=== PATIENT | male | born 1985 | race American Indian/Alaskan Native ===

== ENCOUNTER 2017-08-21 22:19 | Emergency (ER) | payer SELFPAY ==
[2017-08-21 22:26] VITALS: BP 127/78
--- NOTE | 2017-08-22 01:50 | Emergency Department Report ---
ED Laceration HPI - HPI Chief Complaint: Wound/Laceration Stated Complaint: LAC TO HEAD BLEEDING Time Seen by Provider: 08/22/17 01:43 Occurred When: Today Severity: moderate Tetanus Status: Unknown Laceration Symptoms: Yes Pain, No Foreign Body Sensation, No Numbness, No Weakness Other History: This is a 32 y.o. male that presents with a laceration to the back of head on the right side. He hit head on the bedrail around 1730 today. He is having a headache on bilateral frontal area. He is also having right shoulder pain for 1 month. Reports pain in shoulder feel like a clamp is tight on shoulder. Denies LOC, visual changes, numbness/tingling, swelling, nausea/ vomiting, and active bleeding. ED Review of Systems ROS: Stated complaint: LAC TO HEAD BLEEDING Other details as noted in HPI Constitutional: denies: chills, fever Respiratory: denies: cough, shortness of breath, wheezing Cardiovascular: denies: chest pain, palpitations Gastrointestinal: denies: abdominal pain, nausea, vomiting, diarrhea Musculoskeletal: arthralgia (right shoulder) Skin: other (laceration to the back of head on right side). denies: rash, lesions Neurological: headache. denies: weakness, numbness, paresthesias ED Past Medical Hx - Past Medical History Previous Medical History?: Yes - Surgical History Past Surgical History?: No - Social History Smoking Status: Current Every Day Smoker Substance Use Type: None - Medications Home Medications: Home Medications Medication Instructions Recorded Confirmed Last Taken Type Diclofenac Sodium 50 mg PO Q6H PRN #20 tablet. 08/22/17 Unknown Rx Laceration Physical Exam - Exam General: Vital signs noted. No distress. Alert and acting appropriately. Wound Length (cm): 2 Laceration Location: Head (2 cm laceration, superficial to epidermis, no tendon or vessel exposed, no discharge) Laceration Exam: Yes Normal Distal CMS, No Foreign Body, No Exposed Tendon, Vessel, or Nerve, No Tendon Injury ED Course Vital Signs 08/21/17 08/21/17 22:20 22:29 Temperature 98.0 F 98 F Pulse Rate 82 82 Respiratory 18 18 Rate Blood Pressure 127/78 127/78 O2 Sat by Pulse 98 98 Oximetry - Laceration /Wound Repair Right Posterior Occipital Wound Location: head (posterior right side) Wound Length (cm): 2 Wound's Depth, Shape: superficial, linear Wound Explored: no foreign body removed Irrigated w/ Saline (ccs): 10 Betadine Prep?: Yes Volume Anesthetic (ccs): 1 (let topical) Number of Sutures: 2 (fiorella) Layer Closure?: No ED Medical Decision Making - Radiology Data Radiology results: report reviewed Xray of right shoulder IMPRESSION: Within normal limits. - Medical Decision Making This is a 32 y.o. male presents with laceration to posterior head on right side from hitting head on bed rail today and right shoulder pain. The shoulder pain has been there for 1 month and affecting ROM. Patient examined by me. X-ray of right shoulder obtained and normal. Patient is non-toxic appearing and stable. Physical examination is susceptible of laceration to scalp and muscle strain of right shoulder. Given boosterix in ER. Placed 2 fiorella to laceration and instructed to return to ER or f/u with [facility] to have fiorella removed in 7 days. He can follow up with [facility] for shoulder pain. Discharged home for outpatient treatment. Discussed ER care plan with patient. Patient agreed with plan. Start diclofenac for pain. Critical care attestation.: If time is entered above; I have spent that time in minutes in the direct care of this critically ill patient, excluding procedure time. ED Disposition Clinical Impression: Laceration of scalp Qualifiers: Encounter type: initial encounter Qualified Code(s): S01.01XA - Laceration without foreign body of scalp, initial encounter Right shoulder pain Qualifiers: Chronicity: acute Qualified Code(s): M25.511 - Pain in right shoulder Muscle strain of right shoulder region Qualifiers: Encounter type: initial encounter Qualified Code(s): S46.911A - Strain of unspecified muscle, fascia and tendon at shoulder and upper arm level, right arm , initial encounter Disposition: DC-01 TO HOME OR SELFCARE Is pt being admited?: No Does the pt Need Aspirin: No Condition: Stable Instructions: Laceration (ED), Muscle Strain (ED), Staple Care (ED) Additional Instructions: Take diclofenac pain medication as need for pain. Wash head with soap and water in 24-48 hours. Follow up with [facility] in 24-72 hours. Have fiorella removed in 7 days at [facility] or return to ER. Return to ER if red, swollen, foul discharge, or fever. Prescriptions: Diclofenac Sodium 50 mg PO Q6H PRN #20 tablet.dr MCCORMICK Reason: Pain Referrals: [facility] [Outside] - 3-5 Days [facility] [Outside] - 3-5 Days [facility] [Outside] - 3-5 Days Time of Disposition: 03:06 Print Language: MALTESE Upper Extremity Exam - Exam General: Vital signs noted. No distress. Alert and acting appropriately. Head and Torso: No HEENT Abnormality, No Neck Tenderness, No Chest/Lungs Abnormality, No Abdominal Tenderness, No Back Tenderness Shoulder Exam: Yes Shoulder Tenderness, Yes AC Joint Tenderness, No Clavicle Tenderness, No Normal Range of Motion in Shoulder (limited to pain, ROM 60 degrees active and passive), No Shoulder Deformity Arm Exam: No Arm/Humerus Tenderness, No Arm Deformity Elbow: Yes Normal Range of Motion in Elbow, No Elbow Tenderness, No Elbow Deformity Forearm: Yes Pain with Pronation, Yes Pain with Supination, No Forearm Tenderness, No Forearm Deformity Wrist: Yes Normal ROM in Wrist, No Wrist Tenderness, No Wrist Deformity, No Snuffbox Tenderness, No Pain with Axial Thumb Compression Hand: Yes Normal ROM in Digit(s), No Hand Tenderness, No Hand Deformity, No Digit Tenderness, No Digit(s) Deformity, No Tendon Dysfunction CMS Exam: Yes Normal Capillary Refill, No Broken Skin, No Normal Distal Pulses, No Normal Distal Sensation
--- NOTE | 2017-08-22 02:06 | XRay Report ---
FINAL REPORT EXAM: XR SHOULDER 2+V RT HISTORY: right shoulder pain, decreased ROM TECHNIQUE: Three views of the right shoulder were obtained. FINDINGS: There is no evidence of fracture or soft tissue injury. The AC joint and glenohumeral joint appear intact. IMPRESSION: Within normal limits.
[2017-08-22] MEDS ORDERED: LET TOPICAL TP ONE (02:10)
[2017-08-22] MEDS ORDERED: BOOSTRIX IM ONE (02:47)
[2017-08-22] MEDS ORDERED: NORCO 5/325 ONE (03:18)
[2017-08-22] MEDS ORDERED: NORCO 5/325 PO ONE (03:22)
== END 2017-08-22 03:30 | disposition home or self-care (01) ==
LOC: ED 22:19
DX: R51 Headache (principal); Z53.21 Procedure and treatment not carried out due to patient leaving prior to being seen by health care provider
CPT/HCPCS: 90715

== ENCOUNTER 2017-09-02 10:03 | Emergency (ER) | payer SELFPAY ==
[2017-09-02 11:00] VITALS: BP 107/76
--- NOTE | 2017-09-02 14:12 | Emergency Department Report ---
Suture/Staple Removal - [facility] Chief Complaint: Laceration/Recheck/Suture Stated Complaint: STAPLE REMOVAL Time Seen by Provider: 09/02/17 13:57 When Sutures or Fiorella Placed: 8-10 Days Ago Wound Location: right occipital lobe region ED Review of Systems ROS: Stated complaint: STAPLE REMOVAL Other details as noted in HPI Constitutional: denies: chills, fever Eyes: denies: eye pain, eye discharge, vision change ENT: denies: ear pain, throat pain Respiratory: denies: cough, shortness of breath, wheezing Cardiovascular: denies: chest pain, palpitations Endocrine: no symptoms reported Gastrointestinal: denies: abdominal pain, nausea, diarrhea Genitourinary: denies: urgency, dysuria Musculoskeletal: denies: back pain, joint swelling, arthralgia Skin: denies: rash, lesions Neurological: denies: headache, weakness, paresthesias Psychiatric: denies: anxiety, depression Hematological/Lymphatic: denies: easy bleeding, easy bruising ED Past Medical Hx - Past Medical History Previous Medical History?: Yes Additional medical history: head lac with fiorella - Surgical History Past Surgical History?: No - Social History Smoking Status: Current Every Day Smoker Substance Use Type: Alcohol, Prescribed - Medications Home Medications: Home Medications Medication Instructions Recorded Confirmed Last Taken Type Diclofenac Sodium 50 mg PO Q6H PRN #20 tablet. 08/22/17 Unknown Rx Butalb/Acetamin/Caff 50-325-40 1 tab PO Q6HR PRN #30 tab 09/02/17 Unknown Rx [Fioricet] Suture Removal Exam - Exam General: Vital signs noted. No distress. Alert and acting appropriately. GENERAL: The patient is a well-developed, well-nourished in no apparent distress. Patient is alert and acting appropriately for age. Alert and oriented 3, no apparent distress, normal gait, atraumatic. HEENT: Head is normocephalic and atraumatic. PERRL, Extraocular muscles are intact. Pupils are equal, round, and reactive to light and accommodation. Nares appeared normal. Mouth is well hydrated and without lesions. Mucous membranes are moist. Posterior pharynx clear of any exudate or lesions. Mouth is well hydrated and without lesions. Tonsils not erythematous or swollen. Uvula midline. Tongue elevated. Mucous members are moist. Posterior pharynx clear, no exudate or lesions. Patent airways. NECK: Supple. No carotid bruits. No lymphadenopathy or thyromegaly.nontender. No meningitic signs are noted. LUNGS: Clear to auscultation. Non labor breathing. No intercostal retractions. Symmetrical with respiration, no wheezing, no rales, or crackles. HEART: Regular rate and rhythm without murmur, rubs or gallops. No reproducible. S1, S2 present, regular rate and rhythm without murmur, no rubs, no gallops. ABDOMEN: Soft, nontender, and nondistended. Positive bowel sounds. No hepatosplenomegaly was noted. No guarding or rebound tenderness, negative epigastric bruit. Negative psoas sign, negative hernandez sign, negative McBurneys sign EXTREMITIES: Without any cyanosis, clubbing, rash, lesions or edema. Peripheral pulses intact. Capillary refill less than 2 seconds. Full range of motion bilaterally. NEUROLOGIC: Cranial nerves II through XII are grossly intact. Alert and oriented x 3. Normal gait. Symmetrical strength and sensation. Reflexes 2+ throughout. Cerebellar testing normal. GCS score of 15. PSYCHIATRIC: Normal affect with no suicidal or homicidal ideations. Skin: 2 fiorella present to the right occipital lobe region. No pus or drainage noted. No swelling. Well-healing. Wound: No Pathologic Erythema, No Tenderness, No Drainage, No Pus, No Wound Dehiscence Other Systems: All other systems reviewed and are unremarkable. ED Course Vital Signs 09/02/17 10:57 Temperature 97.7 F Pulse Rate 74 Respiratory 16 Rate Blood Pressure 107/76 O2 Sat by Pulse 98 Oximetry - Reevaluation(s) Reevaluation #1: 09/02/17 14:22 Patient is speaking in full sentences with no signs of distress noted. ED Recheck MDM - Medical Decision Making This is a 32-year-old male presents with staple removal. Patient is stable and was examined by me. Patient did state that he develops slight headache intermittently and last headache was last night. Patient denies having a CT scan after trauma. I requested and initiated a CT scan of head/brain now in the fever patient refused and stated he needs to go. I instructed and notify the patient IS a concern and that is patient has a bleed this can be very serious and could occur. Patient still refused. Pateint denies thunderclap headache, blurred vision, visual changes, nausea vomiting chest pain shortness of breath. Patient is neurologically stable. Total of 2 fiorella removed and patient tolerated well. Patient was instructed Follow-up with a primary care doctor in 3-5 days or if symptoms worsen and continue return to emergency room as soon as possible. At time of discharge, the patient does not seem toxic or ill in appearance. No acute signs of distress noted. Patient agrees to discharge treatment plan of care. No further questions noted by the patient. Critical care attestation.: If time is entered above; I have spent that time in minutes in the direct care of this critically ill patient, excluding procedure time. ED Disposition Clinical Impression: Removal of staple Disposition: - TO HOME OR SELFCARE Is pt being admited?: No Does the pt Need Aspirin: No Condition: Stable Instructions: Acute Headache (ED) Additional Instructions: Follow-up with a primary care doctor in 3-5 days or if symptoms worsen and continue return to emergency room as soon as possible. Prescriptions: Butalb/Acetamin/Caff 50-325-40 [Fioricet] 1 tab PO Q6HR PRN #30 tab PRN Reason: Headache Referrals: PRIMARY CARE, [Primary Care Provider] - 3-5 Days LIZZIE FAIR MD [Staff Physician] - 3-5 Days [facility] [Outside] - 3-5 Days [facility] [Outside] - 3-5 Days
== END 2017-09-02 15:06 | disposition home or self-care (01) ==
LOC: ED 10:03
DX: S01.01XD Laceration without foreign body of scalp, subsequent encounter (principal); F17.200 Nicotine dependence, unspecified, uncomplicated; W45.8XXD Other foreign body or object entering through skin, subsequent encounter